=== PATIENT | female | born 1975 | race Caucasian/White ===

== ENCOUNTER 2019-06-26 22:47 | Emergency (ER) | payer OTHER ==
[~2019-06-26] VITALS: Ht 160 cm; Wt 54.4 kg
[2019-06-26 23:05] VITALS: BP_SYST 114
--- NOTE | 2019-06-26 23:09 | NUR ---
Patient triaged and placed in waiting room. VSS and patient appears in no acute distress at this time. Accompanied by SELF, awaiting available bed, and MD notified of need for MSE.
[2019-06-27 00:14] LABS: BILIRUBIN,URINE NEGATIVE (NEGATIVE); BLOOD, URINE 1+ (NEGATIVE); CLARITY/URINE CLEAR (CLEAR); COLOR,URINE YELLOW (YELLOW); GLUCOSE,URINE NEGATIVE (NEGATIVE); KETONES,URINE NEGATIVE (NEGATIVE); LEUKOCYTE ESTERASE ,URINE TRACE (NEGATIVE); NITRITE, URINE POSITIVE (NEGATIVE); PH,URINE 6.5 (5.0-8.0); PROTEIN URINE NEGATIVE (NEGATIVE); UROBILINOGEN,URINE 0.2 (0.2-1.0)
[2019-06-27 00:26] LABS: BACTERIA,URINE MODERATE /HPF (None Seen)
--- NOTE | 2019-06-27 00:40 | NUR ---
pl Patient to ER bed 5 to gown for evaluation. Side rails up.
--- NOTE | 2019-06-27 00:42 | NUR ---
Pt complains of burning sensation when urinating. Per pt, she started to notice this afternoon. Pt denies N/V, diarrhea, or fever. No other injuries/complaints per patient or noted.
--- NOTE | 2019-06-27 01:10 | NUR ---
ER Dr. Fajardo at bedside examining patient.
[2019-06-27] MEDS ORDERED: CEPHALEXIN 500 MG CAPSULE PO ONE (01:15)
[2019-06-27] MEDS ORDERED: PHENAZOPYRIDINE HCL 100 MG TABLET PO ONE (01:15)
--- NOTE | 2019-06-27 01:20 | NUR ---
Medications were given, pt tolerated well. No adverse reaction, will continue to monitor.
[2019-06-27 01:40] VITALS: BP_SYST 118
--- NOTE | 2019-06-27 01:40 | NUR ---
Patient given written and verbal discharge instructions and verbalizes understanding. ER MD discussed with patient the results and treatment provided. Patient in stable condition. ID arm band removed. Rx of Keflex and Pyridium given. Patient educated on pain management and to follow up with PMD. Pain Scale 0. Opportunity for questions provided and answered. Medication side effect fact sheet provided.
== END 2019-06-27 01:40 | disposition home or self-care (01) ==
LOC: SED 22:47
DX: R30.9 Painful micturition, unspecified (principal); R35.0 Frequency of micturition
CPT/HCPCS: 81000-TC; 87086; 99283

== ENCOUNTER 2024-03-13 13:32 | Emergency (ER) | payer BC, OTHER ==
[~2024-03-13] VITALS: Ht 160 cm; Wt 59.0 kg
[2024-03-13 13:48] VITALS: BP_SYST 126; PULSE 77; RESP 18; TEMP 98.2; O2SAT 100
[2024-03-13 14:24] LABS: BILIRUBIN,URINE NEGATIVE (NEGATIVE); BLOOD, URINE 1+ (NEGATIVE); CLARITY/URINE CLEAR (CLEAR); COLOR,URINE YELLOW (YELLOW); GLUCOSE,URINE NEGATIVE (NEGATIVE); KETONES,URINE 1+ (NEGATIVE); LEUKOCYTE ESTERASE ,URINE NEGATIVE (NEGATIVE); NITRITE, URINE NEGATIVE (NEGATIVE); PROTEIN URINE NEGATIVE (NEGATIVE); UROBILINOGEN,URINE 0.2 (0.2-1.0)
[2024-03-13 14:33] LABS: BASOPHILS # (AUTO) 0.1 K/uL (0.0-0.2); BASOPHILS % (AUTO) 0.7 % (0.0-2.0); EOSINOPHILS % (AUTO) 0.3 % (0.0-4.0); HEMATOCRIT 36.3 % (36-48); HEMOGLOBIN 12.8 g/dL (12.0-16.0); LYMPHOCYTES # (AUTO) 2.2 K/uL (1.0-5.5); LYMPHOCYTES % (AUTO) 23.3 % (20.5-51.5); MEAN CORPUSCULAR HEMOGLOBIN 31 pg (27-31); MEAN CORPUSCULAR HGB CONC 35 % (32-36); MEAN CORPUSCULAR VOLUME 87 fL (79.0-98.0); MONOCYTES # (AUTO) 0.5 K/uL (0.0-1.0); MONOCYTES % (AUTO) 5.3 % (1.7-9.3); NEUTROPHILS # (AUTO) 6.7 K/uL (1.8-7.7); NEUTROPHILS % (AUTO) 70.4 % (40.0-70.0); PLATELET COUNT (AUTO) 280 K/uL (130-430); RED BLOOD CELL COUNT(AUTO) 4.16 MIL/uL (4.2-6.2); RED CELL DISTRIBUTION WIDTH 13.2 % (9.0-15.0); WHITE BLOOD COUNT (AUTO) 9.5 K/uL (4.8-10.8)
[2024-03-13 14:35] LABS: BACTERIA,URINE RARE /HPF (None Seen); MUCUS,URINE 1+ /LPF (None Seen); RBC,URINE 0-3 /HPF (0-3); WBC,URINE 0-3 /HPF (0-3)
[2024-03-13 15:26] LABS: ANION GAP 10 (5-15); CALCIUM 9.1 mg/dL (8.4-11.0); CARBON DIOXIDE 28 mmol/L (23-29); CHLORIDE 100 mmol/L (98-107); CREATININE 0.79 mg/dL (0.55-1.30); GFR AFRICAN AMERICAN 100 mL/min (>90); GLUCOSE 92 mg/dL (74-106); POTASSIUM 3.6 mmol/L (3.5-5.1); SODIUM SERUM 138 mmol/L (136-145); UREA NITROGEN, BLOOD 8 mg/dL (8-21)
[2024-03-13 15:28] LABS: GFR NON AFRICAN-AMERICAN 83 mL/min (>90)
[2024-03-13 15:50] VITALS: BP_SYST 126; PULSE 77; RESP 18; TEMP 98.2; O2SAT 100
[2024-03-13] MEDS: KETOROLAC TROMETHAMINE 30 MG VIAL IM ONE (16:17)
[2024-03-13] MEDS ORDERED: ACET-2634 PO (16:44)
[2024-03-13 17:03] LABS: ALBUMIN 4.4 g/dL (3.4-4.8); BILIRUBIN,DIRECT 0.2 mg/dL (0.0-0.3); TOTAL BILIRUBIN 0.9 mg/dL (0.0-1.0); TOTAL PROTEIN, SERUM 7.9 g/dL (6.4-8.3)
== END 2024-03-13 16:40 | disposition home or self-care (01) ==
LOC: SED 13:32
DX: R07.89 Other chest pain (principal); R10.9 Unspecified abdominal pain; F17.200 Nicotine dependence, unspecified, uncomplicated; Z98.890 Other specified postprocedural states
CPT/HCPCS: 99285; 71045; 80076; 80048; 81000; 81001; 83880; 85025; 84484; 36415; 93005; 81025; 96372; 81015; J1885